=== PATIENT | female | born 1980 | race Caucasian/White ===

== ENCOUNTER 2024-12-16 04:24 | Emergency (ER) | payer MEDICARE, SELFPAY ==
[2024-12-16 04:39] VITALS: BP 145/99; PULSE 92; RESP 18; TEMP 36.1; O2SAT 99; BMI 25.6
[2024-12-16 05:06] LABS: Amphetamine Screen Urine Negative (Negative); Barbiturate Screen Urine Negative (Negative); Benzodiazepines Screen Urine Negative (Negative); Cannabinoid Screen Urine POSITIVE (Negative); Cocaine Screen Urine Negative (Negative); Methadone Screen Urine Negative (Negative); Methamphetamines Screen Urine Negative (Negative); Opiate Screen Urine Negative (Negative); Oxycodone Screen Urine Negative (Negative); Phencyclidine Screen Urine Negative (Negative); Tricyclic Antidepressant Urine Negative (Negative)
[2024-12-16] MEDS: LORazepam 1 MG TABLET PO (05:18)
[2024-12-16] MEDS: OLANZapine 5 MG TAB.RAPDIS PO (05:18)
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
[2024-12-16 05:39] LABS: Basophils Percent Auto 0.1 % (0.0-3.0); Eosinophils Percent Auto 1.4 % (0.0-7.0); Hematocrit 42.4 % (33.0-51.0); Hemoglobin* 14.4 gm/dL (12.0-16.0); Immature Granulocytes Pct Auto 0.2 %; Lymphocytes Percent Auto 21.2 % (20-44); Mean Corpuscular HGB Conc 34 gm/dL (32-36); Mean Corpuscular Hemoglobin 30 pg (26-34); Mean Corpuscular Volume 89 fL (80-100); Neutrophils Percent Auto 72.1 % (42.0-72.0); Platelet Count* 324 K/uL (140-440); Red Blood Count 4.75 m/uL (4.00-5.20); White Blood Count* 12.35 K/uL (4.50-11.00)
[2024-12-16 05:49] LABS: Slide Review Reflex No
[2024-12-16 06:02] LABS: Chloride* 104 mmol/L (96-114); Sodium* 137 mmol/L (135-149)
[2024-12-16 06:03] LABS: Potassium* 3.8 mmol/L (3.6-5.1)
[2024-12-16 06:05] LABS: Anion Gap 11 mEq/L (7-15); Blood Urea Nitrogen* 10 mg/dL (5-24); Calcium* 9.3 mg/dL (8.4-10.6); Carbon Dioxide* 22 mmol/L (20-32); Creatinine* 0.5 mg/dL (0.5-1.5); Est. Creatinine Clearance* 114.74; Estimated Glomerular Filt Rate 119 ml/min; Glucose* 161 mg/dL (60-115)
[2024-12-16 06:15] LABS: Acetaminophen* < 10.0 ug/mL (10.0-30.0); Ethanol* < 0.01 % (0.01-0.03); Salicylate* < 1.0 mg/dL (1.0-10)
[2024-12-16 06:28] LABS: HCG Quantitative* < 2.39 mIU/mL
[2024-12-16 06:37] LABS: TSH With Reflex to FT4* 0.989 uIU/mL (0.270-4.200)
[2024-12-16 10:13] VITALS: BP 118/71; PULSE 90; RESP 16; O2SAT 99
[2024-12-16] MEDS: NICOTINE 21 MG PATCH 1 PATCH TRANSDERMA (12:38)
== END 2024-12-16 13:17 | disposition other institution (70) ==
PROVIDERS: Emergency Provider Family Medicine; PCP Family Medicine
DX: F22 Delusional disorders (principal); E11.9 Type 2 diabetes mellitus without complications; F12.90 Cannabis use, unspecified, uncomplicated; Z79.899 Other long term (current) drug therapy
CPT/HCPCS: 36415; 80048; 80143; 80179; 80306; 82077; 84443; 84702; 85025; 99284; 99285; A9270; S4990

== ENCOUNTER 2024-12-16 12:48 | Outpatient (CLI) | payer MEDICARE, SELFPAY | END 2024-12-16 12:49 | disposition home or self-care (01) | LOC: AMB 12-18 11:03 | PROVIDERS: PCP Family Medicine; Visit Provider Internal Medicine | DX: F22 Delusional disorders (principal) | CPT/HCPCS: A0425; A0427 ==

== ENCOUNTER 2025-05-09 19:13 | Outpatient (CLI) | payer MEDICARE, SELFPAY | END 2025-05-09 19:14 | disposition home or self-care (01) | LOC: AMB 05-10 13:16 | PROVIDERS: PCP Family Medicine; Visit Provider Family Medicine | DX: F29 Unspecified psychosis not due to a substance or known physiological condition (principal); E11.9 Type 2 diabetes mellitus without complications | CPT/HCPCS: A0998 ==

== ENCOUNTER 2025-05-14 22:03 | Outpatient (CLI) | payer MEDICARE, SELFPAY | END 2025-05-14 22:04 | disposition home or self-care (01) | PROVIDERS: PCP Family Medicine; Visit Provider Emergency Medicine Emergency Medical Services | DX: R10.9 Unspecified abdominal pain (principal) | CPT/HCPCS: A0425; A0429 ==

== ENCOUNTER 2025-05-14 22:19 | Emergency (ER) | payer MEDICARE, SELFPAY ==
[2025-05-14 22:27] VITALS: BP 127/88; PULSE 89; RESP 18; TEMP 36.6; O2SAT 96; BMI 25.7
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
[2025-05-14 22:41] LABS: Appearance Urine Clear (Clear)
[2025-05-14 22:49] LABS: Cannabinoid Screen Urine POSITIVE (Negative); Methamphetamines Screen Urine Negative (Negative); Tricyclic Antidepressant Urine Negative (Negative)
[2025-05-14 22:50] LABS: Hematocrit* 41.7 % (33.0-51.0); Hemoglobin* 14.3 gm/dL (12.0-16.0); Immature Granulocytes Abs Auto 0.10 K/uL (0.00-0.30); Immature Granulocytes Pct Auto 0.6 %; Lymphocytes Absolute Auto 5.00 K/uL (0.90-2.90); Mean Corpuscular HGB Conc 34 gm/dL (32-36); Mean Corpuscular Hemoglobin 31 pg (26-34); Mean Corpuscular Volume 90 fL (80-100); RDW Coefficient of Variation % 12.3 % (11.5-15.5); Red Blood Count* 4.64 m/uL (4.00-5.20); Slide Review Reflex No; White Blood Count* 11.81 K/uL (4.50-11.00)
[2025-05-14 22:50] LABS: Ur HCG Qualitative* Negative (Negative)
[2025-05-14 23:21] LABS: Albumin* 4.3 g/dL (3.3-5.0); Chloride* 111 mmol/L (96-114); Sodium* 138 mmol/L (135-149)
[2025-05-14 23:22] LABS: Potassium* 3.5 mmol/L (3.6-5.1)
[2025-05-14 23:24] LABS: Alanine Aminotransferase* 20 U/L (4-35); Alkaline Phosphatase* 69 U/L (40-150); Anion Gap 9 mEq/L (7-15); Aspartate Amino Transferase* 22 U/L (12-35); Bilirubin Total* 0.2 mg/dL (0.1-1.5); Blood Urea Nitrogen* 11 mg/dL (5-24); Calcium* 9.1 mg/dL (8.4-10.6); Carbon Dioxide* 18 mmol/L (20-32); Creatinine* 0.5 mg/dL (0.5-1.5); Est. Creatinine Clearance* 118.77; Estimated Glomerular Filt Rate 119 ml/min; Glucose* 86 mg/dL (60-115); Total Protein* 7.1 g/dL (6.0-8.3)
[2025-05-14 23:25] LABS: Salicylate* 2.6 mg/dL (1.0-10)
[2025-05-14 23:27] LABS: Acetaminophen* < 10.0 ug/mL (10.0-30.0); Ethanol* < 0.01 % (0.01-0.03)
[2025-05-14 23:55] VITALS: BP 116/76; PULSE 83; RESP 18; TEMP 36.2; O2SAT 95
== END 2025-05-15 00:35 | disposition home or self-care (01) ==
PROVIDERS: Emergency Provider Family Medicine; PCP Family Medicine
DX: Z71.1 Person with feared health complaint in whom no diagnosis is made (principal); F12.90 Cannabis use, unspecified, uncomplicated
CPT/HCPCS: 36415; 80053; 80143; 80179; 80306; 81001; 81025; 82077; 85025; 87086; 99283; 99284; Q3014